=== PATIENT | female | born 1970 | race Caucasian/White ===

== ENCOUNTER → 2016-11-24 | Outpatient (CLI) | payer OTHER ==
[~2016-11-24] MED LIST: ANAPROX DS550 M1 PO; BACTRIM DS TABL1 TA1 PO; BACTRIM DS TABL1 TA2 PO; CIPRO PO; CIPRO250 MG PO; DITROPAN PO; FLOMAX0.4 M1 PO; HYDROCODON-ACE1 EAC9 PO; HYTRIN1 M1 PO; LEVAQUIN PO; LORTAB 5-325 M1 EACH PO; LORTAB 5/500 TA1 TA1 PO; LORTAB 7.5-5001 TAB PO; NAPROXEN PO; NO MEDICATIONS; NORCO1 TAB 10/3 PO; NORMAL SALINE; PERCOCET 5-3251 TAB PO; PERCOCET5/325 PO; PHENERGAN25 MG PO; PROVERA10 MG PO; SIMVASTATIN40 MG PO; TYLOX1 CAP 5/50 DOB; VICODIN 5/500 T1 TAB PO; ZOFRAN PO
--- NOTE | ~2016-11-24 | CR7 ---
[facility] A Service of [facility] RADIOLOGY TEXT RESULTS PATIENT: SOFIE HUNTER LOCATION: [facility] : 66 UNIT #: [id number] AGE: [address]: Patrice Kaur MD SEX: F ORDER DR: [id number] [facility] [address] [place], [place] [address] [id number] O MR#: [id number] Acc #: [id number] NAME: SOFIE HUNTER : 1970 SEX: F STUDY DATE/TIME: 11/24/2016 9:24 UNIT: [facility] ROOM: STUDY DESCRIPTION: CR Abdomen Single AP View Attending Physician: Patrice Kaur M.D. Referring Physician: Patrice Kaur M.D. Ordering Physician: Patrice Kaur M.D. Primary Care Physician: Magdi Abrams A.P.R.N. MEDICAL IMAGING REPORT This report is preliminary unless electronic signature is present EXAMINATION AP abdomen DATE 11/24/2016 HISTORY Left side abdominal pain and history of left side kidney stones, symptoms present for 2 weeks per patient. COMPARISON CT abdomen and pelvis without contrast 07/29/2016. FINDINGS Study is limited secondary to obscuration by the patient's body habitus. Coarse clustered calcifications project over the left lower renal pole, which appear to be located predominantly in the left lower pole calyx. In aggregate, the calcifications measure 3.2 x 2.1 cm, and are thought to correspond to the previous CT from 07/29/2016. No right renal calculus is identified. No definite left ureteral stones are evident. Nonobstructive bowel gas pattern. Lower lumbar facet arthropathy. IMPRESSION 1. Clustered presumed patency of calcifications in the left lower renal pole measuring 3.2 x 2.1 cm in aggregate, corresponding to the CT abdomen findings from 07/29/2016. No definite ureteral stone is identified. No right renal or ureteral calculi are identified. Dictated by... Meg Cota M.D. [facility] A Service of [facility] RADIOLOGY TEXT RESULTS PATIENT: SOFIE HUNTER LOCATION: [facility] [place] #: [id number] : 66 UNIT #: [id number] AGE: [address]: Patrice Kaur MD SEX: F ORDER DR: THIS IS AN ELECTRONICALLY VERIFIED REPORT Meg Cota M.D. at 11/25/2016 5:28 PM Kaila TD: 11/25/2016 13:11 JOB #: [id number] MEDICAL IMAGING REPORT Page 1 of 1 COPY
== END | disposition home or self-care (01) ==
LOC: CRAD 07:58
DX: N20.0 Calculus of kidney (principal); N28.89 Other specified disorders of kidney and ureter
CPT/HCPCS: 74000

== ENCOUNTER → 2017-02-16 | Outpatient (CLI) | payer OTHER ==
--- NOTE | ~2017-02-16 | CR7 ---
[facility] A Service of [facility] RADIOLOGY TEXT RESULTS PATIENT: SOFIE HUNTER LOCATION: [facility] : 66 UNIT #: [id number] AGE: [address]: Patrice Kaur MD SEX: F ORDER DR: [id number] [facility] [address] [place], [place] [address] [id number] O MR#: [id number] Acc #: [id number] NAME: SOFIE HUNTER : 1970 SEX: F STUDY DATE/TIME: 02/16/2017 7:45 UNIT: [facility] ROOM: STUDY DESCRIPTION: CR Abdomen Single AP View Attending Physician: Patrice Kaur M.D. Referring Physician: Patrice Kaur M.D. Ordering Physician: Patrice Kaur M.D. Primary Care Physician: Magdi Abrams A.P.R.N. MEDICAL IMAGING REPORT This report is preliminary unless electronic signature is present EXAM Frontal abdomen, 02/16/2017 INDICATIONS 46-year-old female with a history of left-sided flank pain secondary to a left-sided renal stone, symptoms began in January of last year. History of lithotripsy on the left. TECHNIQUE Frontal abdomen was performed and compared with 11/24/2016. FINDINGS There are multiple calcifications associated with the lxt-ny-bfaqm pole left kidney. The largest measures about 9 mm. There also appear to be probable casting-type calcifications associated with the lower-pole collecting system on the left that in aggregate span a distance of 1.6 cm. Unusual appearance of the mid-pole left kidney probably secondary to superimposed air within the stomach simulating a prominent left renal collecting system. No distinct suspicious calcification on the right. No suspicious pelvic calcifications. No organomegaly or mass effect. There are degenerative changes in the lumbar spine. IMPRESSION 1. Calcifications associated with the njb-uk-lrmfc pole left kidney as described above. 2. Probable superimposition of gas-filled stomach over the left renal shadow. Dictated by... Douglas Hatch M.D. [facility] A Service of [facility] RADIOLOGY TEXT RESULTS PATIENT: SOFIE HUNTER LOCATION: [facility] : 66 UNIT #: [id number] AGE: [address]: Patrice Kaur MD SEX: F ORDER DR: THIS IS AN ELECTRONICALLY VERIFIED REPORT Douglas Hatch M.D. at 02/16/2017 3:27 PM Mika TD: 02/16/2017 10:54 JOB #: [id number] MEDICAL IMAGING REPORT Page 1 of 1 COPY
== END | disposition home or self-care (01) ==
LOC: CRAD 07:31
DX: N20.0 Calculus of kidney (principal); N28.89 Other specified disorders of kidney and ureter
CPT/HCPCS: 74000